=== PATIENT | male | born 1970 | race Caucasian/White ===

== ENCOUNTER 2018-08-28 11:38 | Emergency (ER) | payer MEDICAID ==
[~2018-08-28] VITALS: Ht 172.7 cm; Wt 129.0 kg
[~2018-08-28 11:38] MED LIST: RISP0.2518 PO; TRAZ-137 PO
[2018-08-28 11:46] VITALS: BP 110/76
[2018-08-28] MEDS ORDERED: DEXAMETHASONE 4 MG TABLET ONE (12:23)
[2018-08-28] MEDS ORDERED: MAALOX/HYOSCYAMINE/LIDOCAINE 45 ML BTL ONE (12:26)
[2018-08-28] MEDS ORDERED: DEXAMETHASONE 4 MG TABLET PO ONE (12:30)
[2018-08-28] MEDS ORDERED: MAALOX/HYOSCYAMINE/LIDOCAINE 45 ML BTL PO ONE (12:30)
== END 2018-08-28 12:34 | disposition home or self-care (01) ==
LOC: ED 12:28
DX: J20.8 Acute bronchitis due to other specified organisms (principal)
CPT/HCPCS: 71046; 99283